=== PATIENT | female | born 1970 | race Caucasian/White ===

== ENCOUNTER 2019-03-08 07:59 | Emergency (ER) | payer OTHER ==
[2019-03-08] MEDS ORDERED: methylPREDNISolone Sodium Succinate 125 MG/2 ML SDV IM ONE (09:19)
--- NOTE | 2019-03-08 09:36 | EDM.PDOC ---
ED HPI GENERAL MEDICAL PROBLEM - General Chief Complaint: ENT Problem Stated Complaint: EAR, CHEST CONGESTION HEADACHE, FEVER Time Seen by Provider: 03/08/19 09:05 Source of Information: Reports: Patient, Family History Limitations: Reports: No Limitations - History of Present Illness INITIAL COMMENTS - FREE TEXT/NARRATIVE: 49-year-old female with intense cold symptoms for the last 4 days, seeking some extra help. She was seen in the clinic 3 days ago and put on antihistamines, cough suppression, but she feels she is getting worse and now has worsening ear pain especially on the right side. Persistent cough without production, no nausea or vomiting. She hurts all over. Onset: Gradual Duration: Day(s): (Symptoms for 4 days) Associated Symptoms: Reports: Cough, Fever/Chills, Headaches, Other (Hoarse sore throat, ear pain) Head Pain Score (Numeric/FACES): 7 - Related Data Allergies Allergy/AdvReac Type Severity Reaction Status Date / Time amoxicillin Allergy Hives Verified 03/08/19 08:45 prednisone Allergy Agitation Verified 03/08/19 08:45 Home Meds: Home Meds Chlorphen/Pseudoeph/Ibuprofen [Advil Allergy Sinus Caplet] 1 each PO TID [History] Chlorpheniramine Maleate 4 mg PO Q4HR 03/08/19 [History] Dextromethorphn/Acetaminoph/CP [Vicks Nyquil Cold & Flu Liquid] 354 ml PO ASDIRECTED 03/08/19 [History] Linaclotide [Linzess] 72 mcg PO DAILY 03/08/19 [History] Omeprazole 20 mg PO BID PRN 03/08/19 [History] Propranolol [Propranolol CR 24 Hr] 120 mg PO DAILY 03/08/19 [History] Past Medical History HEENT History: Reports: Sinusitis Cardiovascular History: Reports: Other (See Below) Other Cardiovascular History: palpitationns Gastrointestinal History: Reports: GERD, Irritable Bowel Syndrome 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 Denies: Shortness of Breath Musculoskeletal: Reports: Other (Generalized body aches) Neurological: Reports: Headache ED EXAM, ENT - Physical Exam Exam: See Below Exam Limited By: No Limitations General Appearance: Alert, No Apparent Distress Eye Exam: Bilateral Eye: Conjunctival Injection (Some conjunctival erythema with a slight amount of mattering, somewhat worse on the right eye) Ears: Other (Bilateral effusions, no significant inflammation) Head: Atraumatic Respiratory/Chest: No Respiratory Distress, Lungs Clear Cardiovascular: Regular Rate, Rhythm Neurological: Alert, Oriented Psychiatric: Depressed Mood Skin: Warm, Dry Course - Vital Signs Last Recorded V/S: Last Vital Signs Temp 99.5 F 03/08/19 08:40 Pulse 95 03/08/19 08:40 Resp 16 03/08/19 08:40 BP 146/94 H 03/08/19 08:40 Pulse Ox 95 03/08/19 08:40 - Orders/Labs/Meds Meds: Medications Discontinued Medications Generic Name Dose Route Start Last Admin Trade Name Freq PRN Reason Stop Dose Admin Methylprednisolone Sodium Succinate 125 mg 03/08/19 09:19 03/08/19 09:32 Solu-Medrol IM 03/08/19 09:20 Not Given ONETIME ONE - Re-Assessments/Exams Free Text/Narrative Re-Assessment/Exam: 03/08/19 09:34 Reviewed the patient's medications, will add Tessalon Perles for cough suppression and Zithromax for a five-day course. Reaffirmed the likelihood of this being a viral syndrome and may have to run its course but she can return if worsening. Departure - Departure Time of Disposition: 10:09 Disposition: Home, Self-Care 01 Clinical Impression: Viral URI with cough Otitis media, serous, acute Qualifiers: Laterality: bilateral Recurrence: non-recurrent Qualified Code(s): H65.03 - Acute serous otitis media, bilateral - Discharge Information Instructions: Viral Respiratory Infection, [id number] Referrals: PCP,None [Primary Care Provider] - Forms: ED Department Discharge Care Plan Goals: Take full dose ibuprofen 3 times a day, continue cold medications, take antibiotic as directed and use cough suppression as well. Rest, fluids, increase diet and activity as tolerated and recheck in 2-3 days if not improving satisfactorily.
== END 2019-03-08 10:09 | disposition home or self-care (01) ==
LOC: JP.ED 07:59
DX: J06.9 Acute upper respiratory infection, unspecified (principal); H65.03 Acute serous otitis media, bilateral; K21.9 Gastro-esophageal reflux disease without esophagitis; Z79.899 Other long term (current) drug therapy; Z88.1 Allergy status to other antibiotic agents; Z88.8 Allergy status to other drugs, medicaments and biological substances
CPT/HCPCS: 99283

== ENCOUNTER 2019-05-09 21:54 | Emergency (ER) | payer OTHER ==
[2019-05-09] MEDS ORDERED: Acetaminophen/oxyCODONE 325-5 MG Tab PO ONE (22:57)
[2019-05-09] MEDS ORDERED: Ketorolac 60 MG/2 ML SDV IM ONE (22:57)
--- NOTE | 2019-05-09 23:03 | EDM.PDOC ---
ED HPI GENERAL MEDICAL PROBLEM - General Chief Complaint: Lower Extremity Injury/Pain Stated Complaint: LEFT LEG PAIN Time Seen by Provider: 05/09/19 22:45 Source of Information: Reports: Patient - History of Present Illness INITIAL COMMENTS - FREE TEXT/NARRATIVE: 49 yo female from [facility] presents with an acute increase in L knee pain a few hrs ago associated with a pop as she was getting out of a boat. The knee had been hurting her more lately and has been taking ibuprofen for it, her last dose was this morning. Did not fall with this episode. Hurts to move her knee. Most of the pain is behind her knee. 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 (see below) (none) - Related Data Allergies Allergy/AdvReac Type Severity Reaction Status Date / Time amoxicillin Allergy Hives Verified 03/08/19 08:45 prednisone Allergy Agitation Verified 03/08/19 08:45 Home Meds: Home Meds Linaclotide [Linzess] 72 mcg PO DAILY 03/08/19 [History] Omeprazole 20 mg PO DAILY 03/08/19 [History] Propranolol [Propranolol CR 24 Hr] 120 mg PO DAILY 03/08/19 [History] Fexofenadine [Diane] 180 mg PO DAILY 05/09/19 [History] Past Medical History HEENT History: Reports: Sinusitis Cardiovascular History: Reports: Other (See Below) Other Cardiovascular History: palpitationns Gastrointestinal History: Reports: GERD, Irritable Bowel Syndrome 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 Ablation Musculoskeletal History: Reports: Arthritis Neurological History: Reports: Migraines Social & Family History - Caffeine Use Caffeine Use: Reports: Soda Review of Systems - Review of Systems Review Of Systems: See Below Constitutional: Reports: No Symptoms Musculoskeletal: Reports: Joint Pain (L knee) Skin: Reports: No Symptoms Neurological: Reports: No Symptoms ED EXAM, GENERAL - Physical Exam Exam: See Below Exam Limited By: No Limitations General Appearance: Alert, WD/WN, Mild Distress, Obese Extremities: Pedal Edema (slight swelling of the L knee, no definitive effusion now, had jt line tenderness all the way around-worse posteriorly. No ligaementous laxity. No redness or increase in warmth. ). No: Non-Tender Neurological: Alert, Oriented, CN II-XII Intact, Normal Cognition, No Motor/ Sensory Deficits Skin Exam: Warm, Dry, Intact, Normal Color, No Rash Course - Vital Signs Last Recorded V/S: Last Vital Signs Temp 36.1 C 05/09/19 23:18 Pulse 76 05/09/19 23:18 Resp 16 05/09/19 23:18 BP 133/64 05/09/19 23:18 Pulse Ox 97 05/09/19 23:18 - Orders/Labs/Meds Orders: Active Orders 24 hr Category Date Time Status Knee 3V Lt [CR] Stat Exams 05/09/19 22:58 Taken Meds: Medications Discontinued Medications Generic Name Dose Route Start Last Admin Trade Name Freq PRN Reason Stop Dose Admin Ketorolac Tromethamine 60 mg 05/09/19 22:57 05/09/19 23:05 Toradol IM 05/09/19 22:58 60 mg ONETIME ONE Administration Oxycodone/Acetaminophen 1 tab 05/09/19 22:57 05/09/19 23:04 Percocet 325-5 Mg PO 05/09/19 22:58 1 tab ONETIME ONE Administration - Radiology Interpretation Free Text/Narrative:: L knee X-ray-neg Departure - Departure Time of Disposition: 23:50 Disposition: Home, Self-Care 01 Condition: Fair Clinical Impression: Knee pain, left Qualifiers: Chronicity: acute Qualified Code(s): M25.562 - Pain in left knee Acute meniscal tear of left knee Qualifiers: Encounter type: initial encounter Qualified Code(s): S83.207A - Unspecified tear of unspecified meniscus, current injury, left knee, initial encounter - Discharge Information *PRESCRIPTION DRUG MONITORING PROGRAM REVIEWED*: No *COPY OF PRESCRIPTION DRUG MONITORING REPORT IN PATIENT LUCI: No Instructions: Meniscus Tear Referrals: PCP,None [Primary Care Provider] - Forms: ED Department Discharge Additional Instructions: Take ibuprofen 600 mg every 6 hrs with food starting after 5 am. Take acetaminophen OR [place] for added pain relief as needed. Crutch walking and no weight bearing. F/U with orthopedics next week, take your X-ray along to your appt. - My Orders Last 24 Hours: My Active Orders 05/09/19 22:58 Knee 3V Lt [CR] Stat - Assessment/Plan Last 24 Hours: My Active Orders 05/09/19 22:58 Knee 3V Lt [CR] Stat
--- NOTE | 2019-05-10 00:21 | CRLCR ---
INDICATION: Knee pain, heard a pop. TECHNIQUE: Three views. FINDINGS: There is no radiographic evidence fracture/dislocation/acute bone or joint abnormality. There is mild tricompartment joint space narrowing. Osteophytes about the patellofemoral joint. IMPRESSION: No radiographic evidence of fracture/dislocation. Chronic change as described. Dictated by Erick Serrano MD @ May 10 2019 12:17AM Signed by Dr. Erick Serrano @ May 10 2019 12:19AM
== END 2019-05-10 00:15 | disposition home or self-care (01) ==
LOC: JP.ED 21:54
DX: S83.207A Unspecified tear of unspecified meniscus, current injury, left knee, initial encounter (principal); K21.9 Gastro-esophageal reflux disease without esophagitis; Z88.1 Allergy status to other antibiotic agents; Z88.8 Allergy status to other drugs, medicaments and biological substances; Z79.899 Other long term (current) drug therapy; X50.9XXA Other and unspecified overexertion or strenuous movements or postures, initial encounter
CPT/HCPCS: 73562; 96372; 99283; A9270; J1885